=== PATIENT | male | born 1960 | race Hispanic/Latino ===

== ENCOUNTER → 2024-11-20 | Outpatient (CLI) | payer MEDICARE ==
--- NOTE | 2024-11-20 23:13 | HMCSR ---
APPROVED REPORT EXAM: Two-dimensional and M-mode echocardiogram with Doppler and color Doppler. INDICATION ICD: I11.9 Hypertensive heart disease without heart failure, R60.0 2D Dimensions RVDd4.5 cmLVEF(%)15.0 (>50%)LVED Vol(simp.)139.0 mL IVSd1.4 (0.7-1.1cm)FS(%)7 %LVES Vol(simp.)113.0 mL LVDd5.1 (3.8-5.6cm)LA (2D)4.9 (1.6-4.0cm)LVEF(%, simp.)19 % PWd1.5 (0.7-1.1cm)Ao Root(2D)3.5 (2.0-3.7cm)LA ESV INDEX (BP)49.57 mL/m2 IVSs1.3 cmLVOT diam2.3 (1.8-2.4cm) LVDs4.8 (2.5-4.0cm)IVC diam2.5 cm PWs1.6 cm M-Mode Dimensions EPSS1.8 cm LA (MM)5.0 (1.6-4.0cm) Ao Root(MM)3.5 (2.0-3.7cm) Aortic Valve AoV Vmax0.8 m/Jerome Peak GR2.8 mmHgLVOT Vmax0.5 m/s AoV VTI0.1 mAo Mean GR1.7 mmHgLVOT VTI0.06 m RANDEE (VMAX)2.42 cm2Al P1/2T493 msAVA (VTI) 2.4 cm2 Mitral Valve MV E Vmax99.3 cm/sDECEL Rviu891 ms P 1/2 T30 ms MVA (PHT)7.2 cm2 TDI E/E' Ilwyah74.2E/E' Jkfgtlg20.0 Medial E' Peak V2.74 cm/sLateral E' Peak V8.26 cm/s Pulmonary Valve PV Vmax0.6 m/s PV Peak GR1.4 mmHg Tricuspid Valve TR Vmax3.2 m/sRAP (EST) 15 knKjKBWX76.1 mmHg TR Peak GR46.1 mmHg Left Ventricle The left ventricle is normal size. There is severe global hypokinesis of the left ventricle. Moderate concentric LVH. LVEF is 15-20%. Stage III diastolioc dysfunction. Right Ventricle The right ventricle is moderately dilated. Right ventricular systolic function is severely reduced. Atria The left atrium is severely dilated. LASVI 50 mL/m. The right atrium is moderately dilated. Aortic Valve Aortic valve is trileaflet. Trace of aortic regurgitation is present. There is no aortic valvular kala nosis. Mitral Valve The mitral valve is normal in structure. There is mild mitral valve regurgitation noted. There is no mitral valve stenosis. Tricuspid Valve The tricuspid valve is normal in structure. There is mild tricuspid valve regurgitation noted. Modera te pulmonary HTN with RVSP 61mmHg. Pulmonic Valve The pulmonary valve is normal in structure. There is trace of pulmonic valvular regurgitation. Great Vessels The aortic root is normal in size. IVC is dilated and collapses <50% with inspiration. Pericardium There is no pericardial effusion. Other Information Quality : Adequate Conclusion The left atrium is severely dilated. LASVI 50 mL/m. The left ventricle is normal size. Moderate concentric LVH. There is severe global hypokinesis of the left ventricle. LVEF is 15-20%. Stage III diastolioc dysfunction. Aortic valve is trileaflet. There is mild mitral valve regurgitation noted. There is mild tricuspid valve regurgitation noted. Moderate pulmonary HTN with RVSP 61mmHg. There is no pericardial effusion.
== END | disposition home or self-care (01) ==
LOC: RAH 14:15
PROVIDERS: ATTEND Internal Medicine
DX: I08.1 Rheumatic disorders of both mitral and tricuspid valves (principal); I11.9 Hypertensive heart disease without heart failure; I27.20 Pulmonary hypertension, unspecified; R60.0 Localized edema
CPT/HCPCS: 93306

== ENCOUNTER → 2024-12-09 | Outpatient (CLI) | payer MEDICARE ==
[~2024-12-09] MED LIST: REGADENOSON 0.4 MG/5 ML PF SYG IVP ONE
--- NOTE | 2024-12-09 16:55 | HMCSR ---
APPROVED REPORT Height: 5 ft 8in Weight: 167 lbs TEST INDICATIONS CHF The imaging protocol used to acquire images was Rest Tc-99m/stress Tc-99m 1 day Consent: The procedure was explained and understood by the patient. Informerd consent was witnessed Jessica Fry RN First, low dose rest was performed then high dose stress. RESTING DATA: The resting ekg shows: NSR, PVC's Rest SPECT myocardial perfusion imaging was performed in supine position minutes following the intra venous injection of 10.5 mCi of Tc-99 Sestamibi. Time of rest injection: 10:10: Date: 12/09/2024 PHARMACOLOGIC STRESS: Pharmacologic stress test was performed by injecting regadenoson 0.4 mg IV push followed by the intra venous injection of 27 mCi of Tc-99 Sestamibi. Time of stress injection: 11:45: Date: 12/09/2024 Heart Rate at time of stress injection: 80 bpm. Gated Stress SPECT was performed 60 minutes after stress injection. The images were gated to evaluate regional wall motion and calculate left ventricular ejection fracti on. STRESS DETAILS Reason for Termination: Infusion complete Stress Symptoms: No chest pain or symptoms Max HR Achieved: 99 bpm % of APMHR Achieved: 76 Max Blood Pressure: 147/85 mmHg Stress ECG: NSR, PVC's LEFT VENTRICLE The left ventricular ejection fraction was calculated to be 44%.TID = 0.82. IMPRESSION Abnormal pharmacologic nuclear stress test. Conclusion Abnormal [id number] stress test with an LVEF of 44% and a TID of 0.82 There is a medium sized, moderate severity inferior perfusion defect suggestive of ischemia.
== END | disposition home or self-care (01) ==
LOC: RAH 09:12
PROVIDERS: ATTEND Internal Medicine
DX: I49.3 Ventricular premature depolarization (principal); I50.22 Chronic systolic (congestive) heart failure
CPT/HCPCS: 78452; 93017; J2785; A9500 ×2